=== PATIENT | female | born 1965 | race Caucasian/White ===

== ENCOUNTER 2016-12-07 13:08 | Emergency (ER) | payer OTHER ==
--- NOTE | ~2016-12-07 | EKG ---
PATIENT: JYOTI FUCHS UNIT #: [id number] Ventricular Rate: 71 BPM Atrial Rate: 71 BPM P-R Interval: 150 ms QRS Duration: 84 ms Q-T Interval: 386 ms QTC Calculation(Bezet): 419 ms P [place]: 52 degrees Calculated R [place]: -13 degrees Calculated T [place]: 14 degrees Diagnosis Line: Normal sinus rhythm Diagnosis Line: Minimal voltage criteria for LVH, may be normal Diagnosis Line: variant Diagnosis Line: Borderline ECG Diagnosis Line: When compared with ECG of 16-AUG-2011 23:46, Diagnosis Line: No significant change was found Diagnosis Line: Confirmed by OPHELIA SCHMIDT MD ([id number]) on Diagnosis Line: 12/08/2016 10:57:02 AM INTERPRETING SHRUTHI LOVE
--- NOTE | ~2016-12-07 | CR63 ---
[facility] A Service of [facility] RADIOLOGY TEXT RESULTS PATIENT: JYOTI FUCHS LOCATION: [facility] : 61 UNIT #: [id number] AGE: [address]: Missy Smith APRN SEX: F ORDER DR: [id number] [facility] [address] [place], [place] [address] [id number] MR#: [id number] Acc #: [id number] NAME: JYOTI FUCHS : 1965 SEX: F STUDY DATE/TIME: 12/07/2016 15:08 UNIT: [facility] ROOM: STUDY DESCRIPTION: CR Chest 2 View Attending Physician: Missy Smith A.P.R.N. Ordering Physician: [facility] MEDICAL IMAGING REPORT This report is preliminary unless electronic signature is present EXAM Chest x-ray 12/07 HISTORY Light-headedness and cough for the last 2 days. TECHNIQUE Two views of the chest are compared with 11/25/2016. FINDINGS Cardiac and mediastinal contours are normal. There is some mild chronic scarring or atelectasis at the left base. The lungs are otherwise clear. No pneumothorax is identified. IMPRESSION Mild chronic scarring or atelectasis at the left base. Otherwise, negative chest. Dictated by... Moses Vee Jr., M.D. THIS IS AN ELECTRONICALLY VERIFIED REPORT Moses Vee Jr., M.D. at 12/09/2016 7:19 AM RLK/johnnie TD: 12/07/2016 22:21 JOB #: [id number] MEDICAL IMAGING REPORT Page 1 of 1 COPY
--- NOTE | ~2016-12-07 | CT71 ---
[facility] A Service of [facility] RADIOLOGY TEXT RESULTS PATIENT: JYOTI FUCHS LOCATION: [facility] : 61 UNIT #: [id number] AGE: [address]: Missy Smith APRN SEX: F ORDER DR: [id number] [address] [place], [place] [address] [id number] MR#: [id number] Acc #: [id number] NAME: JYOTI FUCHS : 1965 SEX: F STUDY DATE/TIME: 12/07/2016 17:24 UNIT: [facility] ROOM: STUDY DESCRIPTION: CT Head Wo Contrast Attending Physician: Missy Smith A.P.R.N. Ordering Physician: Grant Lofton M.D. MEDICAL IMAGING REPORT This report is preliminary unless electronic signature is present EXAM CT head 12/07/2016 HISTORY Dizzy since 12/06/2016. TECHNIQUE CT head performed from skull base to vertex without intravenous contrast. This CT exam was performed with one or more of the following radiation dose reduction techniques: automatic exposure control, adjustment of mA and/or kV according to patient size, and iterative reconstruction. COMPARISON STUDIES None. FINDINGS Brainstem unremarkable. Cerebellum and cerebral hemispheres show normal sneed matter-white matter differentiation. No hemorrhage. No evidence of acute cortical ischemia. Midline structures nondisplaced. Basal ganglia intact. Ventricles, cisterns, sulci normal in size and contour. No intra- or extraaxial mass effect or abnormal intracranial fluid collection. The visualized intraorbital soft tissues are unremarkable. Visualized paranasal sinuses and mastoid air cells are clear. Bony structures unremarkable. IMPRESSION 1. Normal CT of the head. If the patient has ongoing neurologic symptoms, consider follow-up imaging, preferably with MRI if the patient is a candidate. [facility] A Service of [facility] RADIOLOGY TEXT RESULTS PATIENT: JYOTI FUCHS LOCATION: [facility] : 61 UNIT #: [id number] AGE: [address]: Missy Smith APRN SEX: F ORDER DR: Dictated by... Darien Vaughan M.D. THIS IS AN ELECTRONICALLY VERIFIED REPORT Darien Vaughan M.D. at 12/08/2016 12:11 PM TALHA/johnnie TD: 12/08/2016 00:53 JOB #: [id number] MEDICAL IMAGING REPORT Page 1 of 1 COPY
[~2016-12-07 13:08] MED LIST: ALDACTONE25 MG PO; ASPIRIN81 M1 PO; ASPIRIN81 M2 PO; CLARITIN10 M3 PO; COLACE PO; COREG PO; HCTZ PO; MULTI VITAMIN1 EACH PO; NIASPAN1000 MG PO; ZOCOR PO
[2016-12-07 14:55] LABS: URINE SOURCE CLEAN CATCH
[2016-12-07 15:00] LABS: URINE APPEARANCE CLEAR; URINE BILIRUBIN NEG (NEG); URINE BLOOD NEG (NEG); URINE COLOR YELLOW; URINE GLUCOSE NEG (NEG); URINE KETONE NEG (NEG); URINE LEUKOCYTE ESTERASE 2+ (NEG); URINE NITRATE NEG (NEG); URINE PH 5.5 (5-8); URINE PROTEIN NEG (NEG); URINE SPECIFIC GRAVITY 1.019 (1.003-1.035)
[2016-12-07 15:02] LABS: BASOPHIL% 0.5 % (0-2.5); EOSINOPHIL# 0.1 X10e3 (0-0.7); EOSINOPHIL% 1.7 % (0.0-7.0); HEMATOCRIT 40.8 % (35.0-45.0); HEMOGLOBIN 13.4 gm/dL (12.0-16.0); LYMPHOCYTE% 24.6 % (17.0-45.0); MEAN CELL VOLUME 91.2 FL (83-96); MEAN CORPUSCULAR HEMOGLOBIN 29.9 PG (28-34); MEAN CORPUSCULAR HGB CONC 32.7 g/dL (30-36); MEAN PLATELET VOLUME 8.9 FL (6.5-11.5); MONOCYTE# 0.7 X10e3 (0-1.0); MONOCYTE% 8.5 % (3.0-12.0); NEUTROPHIL# 5.3 X10e3 (1.5-7.1); NEUTROPHIL% 64.7 % (40-75); PLATELET COUNT 300 X10e3 (140-420); RED BLOOD COUNT 4.48 X10e (3.90-5.30); RED CELL DISTRIBUTION WIDTH 13.5 % (11.0-15.5); U HYALINE CASTS AUWI 0-2 /[LPF]; URINE BACTERIA AUWI NEG (NEGATIVE); URINE SQUAMOUS EPITHELIAL CELL OCC /[HPF]; WHITE BLOOD COUNT 8.2 X10e3 (4.0-10.5)
[2016-12-07 15:04] LABS: POC - CKMB 4.2 ng/mL (0.0-7.9); POC - TROPONIN <0.05 ng/mL (<=0.05)
[2016-12-07 15:04] LABS: DIFF IND NO
[2016-12-07 15:06] LABS: CULTURE INDICATED? NO; UWBCS1 AUWI 0-2 (0-5)
[2016-12-07 15:30] LABS: ALBUMIN SERUM 3.9 g/dL (3.5-5.0); BILIRUBIN, DIRECT 0.1 mg/dL (0.0-0.2); BILIRUBIN,INDIRECT 0.6 mg/dL (0.0-0.9); BILIRUBIN,TOTAL 0.7 mg/dL (0.2-2.0); CALCIUM SERUM 9.1 mg/dL (8.4-10.2); GLOM FILT RATE Estimated 64.3 mL/min (>60); POTASSIUM 3.4 mmol/L (3.5-5.1); PROTEIN TOTAL SERUM 7.3 g/dL (6.0-8.3)
== END 2016-12-07 18:30 | disposition home or self-care (01) ==
LOC: CED 13:08
PROVIDERS: Nurse Practitioner
DX: R42 Dizziness and giddiness (principal); Z98.51 Tubal ligation status
CPT/HCPCS: 36415; 70450; 71020; 80048; 80076; 81003; 82553; 82947; 84484; 85025; 93005; 99284